=== PATIENT | male | born 1970 | race Caucasian/White ===

== ENCOUNTER 2017-01-17 19:25 | Emergency (ER) | payer BC | END 2017-01-17 22:25 | disposition left against medical advice (07) | LOC: MADERS 19:25 | DX: Z53.21 Procedure and treatment not carried out due to patient leaving prior to being seen by health care provider (principal) ==

== ENCOUNTER 2017-07-02 17:55 | Emergency (ER) | payer BC ==
[2017-07-02] MEDS ORDERED: HYDROcodone/Acetaminophen 10/325 mg Tablet ONE (19:34)
[2017-07-02] MEDS ORDERED: Naproxen 500 MG TAB ONE (19:34)
--- NOTE | 2017-07-02 21:01 | RAD ---
THREE VIEW RIGHT ANKLE: Clinical history: Twisting injury, pain. FINDINGS: There is no evidence of fracture or dislocation. Osteoarthritis is present. IMPRESSION: No acute fracture right ankle. POS: [facility]
== END 2017-07-02 20:15 | disposition home or self-care (01) ==
LOC: MADERS 17:55
DX: S93.401A Sprain of unspecified ligament of right ankle, initial encounter (principal); F17.210 Nicotine dependence, cigarettes, uncomplicated; X50.1XXA Overexertion from prolonged static or awkward postures, initial encounter

== ENCOUNTER 2017-10-28 18:11 | Emergency (ER) | payer BC ==
[2017-10-28] MEDS ORDERED: Ibuprofen 800 MG TAB ONE (20:07)
[2017-10-28] MEDS ORDERED: Amoxicillin/Potassium Clav 875 MG TAB ONE (20:07)
[2017-10-28] MEDS ORDERED: HYDROcodone/Acetaminophen 5/325 mg Tablet ONE (20:07)
--- NOTE | 2017-10-28 20:19 | RAD ---
PA AND LATEARL CHEST RADIOGRAPH: Date: 10-28-17 History: Chest pain. Comparison: None available. FINDINGS: The cardiac silhouette and pulmonary vasculature are within normal limits. There is minimal patchy de nsity overlying the right middle lobe and lingula only seen on the lateral projection. While this may be related to superimposition of structures, developing pneumonitis at the right middle lobe or ling ej cannot be excluded. The lungs are otherwise clear. Cardiac silhouette and pulmonary vasculature a re within normal limits. There is suggestion of remote rib fracture involving the anterolateral right 4th, 5th, and 6th ribs. There is mild wedging of a midthoracic vertebral body but this may be physio logic in origin and this finding was also noted on CT of the thorax on 02-14-16. IMPRESSION: Minimal patchy density overlying the right middle lobe and lingula on the lateral projection. While t his may be related to superimposition of structures, developing area of pneumonitis cannot be entirel y excluded. Follow up chest x-ray as clinically indicated is recommended. POS: [facility]
== END 2017-10-28 20:20 | disposition home or self-care (01) ==
LOC: MADERS 18:11
DX: S06.0X0A Concussion without loss of consciousness, initial encounter (principal); S22.41XA Multiple fractures of ribs, right side, initial encounter for closed fracture; F17.210 Nicotine dependence, cigarettes, uncomplicated; W52.XXXA Crushed, pushed or stepped on by crowd or human stampede, initial encounter; Y93.61 Activity, american tackle football; Y92.39 Other specified sports and athletic area as the place of occurrence of the external cause; Y99.8 Other external cause status
CPT/HCPCS: 71046

== ENCOUNTER 2017-12-04 21:01 | Emergency (ER) | payer BC ==
[2017-12-04] MEDS ORDERED: HYDROcodone/Acetaminophen 5/325 mg Tablet ONE (21:37)
[2017-12-04] MEDS ORDERED: Amoxicillin/Potassium Clav 875 MG TAB ONE (21:37)
== END 2017-12-04 21:44 | disposition home or self-care (01) ==
LOC: MADERS 21:01
DX: S61.452A Open bite of left hand, initial encounter (principal); F17.210 Nicotine dependence, cigarettes, uncomplicated; W54.0XXA Bitten by dog, initial encounter
CPT/HCPCS: 99283

== ENCOUNTER 2017-12-29 23:11 | Emergency (ER) | payer BC ==
[2017-12-30] MEDS ORDERED: HYDROcodone/Acetaminophen 10/325 mg Tablet ONE (00:09)
[2017-12-30] MEDS ORDERED: Ibuprofen 800 MG TAB ONE (00:09)
--- NOTE | 2017-12-30 07:41 | RAD ---
RIGHT KNEE 4 VIEWS: Date: 12/29/17 HISTORY: 47-year-old male with right knee pain. IMPRESSION: Mild degenerative changes. No acute fracture or dislocation. Possible minimal suprapatellar recess fl uid. POS: [facility]
== END 2017-12-30 00:30 | disposition home or self-care (01) ==
LOC: MADERS 23:11
DX: M25.561 Pain in right knee (principal); F17.220 Nicotine dependence, chewing tobacco, uncomplicated

== ENCOUNTER 2018-10-16 07:50 | Emergency (ER) | payer BC ==
[2018-10-16] MEDS ORDERED: Azithromycin 250 MG TAB ONE (08:50)
[2018-10-16] MEDS ORDERED: Dexamethasone 4 MG TAB ONE (08:50)
[2018-10-16] MEDS ORDERED: Benzonatate 100 MG CAP ONE (08:50)
== END 2018-10-16 08:59 | disposition home or self-care (01) ==
LOC: MADERS 07:50
DX: J18.9 Pneumonia, unspecified organism (principal); F17.210 Nicotine dependence, cigarettes, uncomplicated
CPT/HCPCS: 87804; 99283; J8540

== ENCOUNTER 2018-11-03 18:10 | Emergency (ER) | payer BC | END 2018-11-03 19:28 | disposition home or self-care (01) | LOC: MADERS 18:10 | DX: S06.0X9A Concussion with loss of consciousness of unspecified duration, initial encounter (principal); F17.210 Nicotine dependence, cigarettes, uncomplicated; W22.8XXA Striking against or struck by other objects, initial encounter | CPT/HCPCS: 99283 ==

== ENCOUNTER 2019-02-02 23:01 | Emergency (ER) | payer BC ==
--- NOTE | 2019-02-03 00:22 | RAD ---
Radiograph right knee 4 views: HISTORY: Pain FINDINGS: Suprapatellar joint effusion. Tiny osteophytes at patellofemoral, medial, and lateral compartments wi thout joint space narrowing. No fracture or dislocation. Edema in Hoffa's fat pad. IMPRESSION: 1. Joint effusion and edema in Hoffa's fat pad. 2. Mild osteoarthrosis. 3. No fracture.
== END 2019-02-03 | disposition home or self-care (01) ==
LOC: MADERS 23:01
DX: S83.91XA Sprain of unspecified site of right knee, initial encounter (principal); X50.1XXA Overexertion from prolonged static or awkward postures, initial encounter

== ENCOUNTER 2019-11-04 06:35 | Emergency (ER) | payer BC | END 2019-11-04 07:50 | disposition home or self-care (01) | LOC: MADERS 06:35 | DX: B34.9 Viral infection, unspecified (principal); R00.1 Bradycardia, unspecified; F17.220 Nicotine dependence, chewing tobacco, uncomplicated; Z71.6 Tobacco abuse counseling; Z79.899 Other long term (current) drug therapy | CPT/HCPCS: 87804; 93005; 99406 ==

== ENCOUNTER 2020-07-09 17:53 | Emergency (ER) | payer BC ==
[2020-07-09] MEDS ORDERED: Sodium Chloride 0.9% 100 ML ONE (19:25)
[2020-07-09] MEDS ORDERED: Ondansetron PF 4 MG/2 ML Vial ONE (19:25)
[2020-07-09 19:32] LABS: #Basophils 0.1 thou/uL (0.0-0.2); #Eosinphils 0.3 thou/uL (0.0-0.7); #Lymphocytes 2.2 thou/uL (1.20-3.40); #Monocytes 0.8 thou/uL (0.11-0.59); #Neutrophils 5.5 thou/uL (1.40-6.50); %Basophils 1.5 % (0.0-1.0); %Eosinophils 3.9 % (0.0-10.0); %Lymphocytes 24.9 % (21.0-51.0); %Monocytes 8.5 % (0.0-10.0); %Neutrophils 61.2 % (42.0-75.0); Hemoglobin 15.7 g/dL (14.0-18.0); Mean Corpuscular HGB CONC 31.9 g/dL (32.0-36.0); Mean Corpuscular Hemoglobin 28.9 pg (27.0-31.0); Mean Corpuscular Volume 90.6 fL (78.0-98.0); Mean Platelet Volume 6.2 fL (7.4-10.4); Platelet Count 164 thou/uL (130-400); RBC Distribution Width 11.6 % (11.5-14.5); Red Blood Cell (RBC) Count 5.43 mill/uL (4.70-6.10)
[2020-07-09 19:43] LABS: Anion Gap 17 mmol/L (10-20); BUN (Urea Nitrogen) 19 mg/dL (8.4-25.7); Calc. Creatinine Clearance 0 mL/min (70-130); Calcium 9.2 mg/dL (7.8-10.44); Carbon Dioxide 19 mmol/L (22-29); Chloride 108 mmol/L (98-107); Estimated GFR-MDRD 71; Glucose 83 mg/dL (70-105); Potassium 3.6 mmol/L (3.5-5.1); Sodium 140 mmol/L (136-145)
[2020-07-11 10:24] LABS: SARS-CoV-2 MS2 Positive; SARS-CoV-2 N Gene Negative; SARS-CoV-2 S Gene Negative; SARS-CoV-2 by NAA Not Detected (NotDetected); SARS-CoV-2 orf1ab Negative
== END 2020-07-09 20:35 | disposition home or self-care (01) ==
LOC: MADERS 17:53
DX: R19.7 Diarrhea, unspecified (principal); R53.81 Other malaise; R11.0 Nausea; Z20.828 Contact with and (suspected) exposure to other viral communicable diseases; F17.220 Nicotine dependence, chewing tobacco, uncomplicated
CPT/HCPCS: 80048; 85025; 87081; 87430; 87635; 96374; J2405; J3490; U0003

== ENCOUNTER 2021-03-07 04:03 | Emergency (ER) | payer BC, OTHER ==
[2021-03-07] MEDS ORDERED: Acetaminophen/Codeine 30-300mg Tablet ONE (04:35)
== END 2021-03-07 04:58 | disposition home or self-care (01) ==
LOC: MADERS 04:03
DX: S52.572A Other intraarticular fracture of lower end of left radius, initial encounter for closed fracture (principal); S52.612A Displaced fracture of left ulna styloid process, initial encounter for closed fracture; F17.220 Nicotine dependence, chewing tobacco, uncomplicated; W22.8XXA Striking against or struck by other objects, initial encounter
CPT/HCPCS: 29125

== ENCOUNTER 2022-10-24 04:58 | Emergency (ER) | payer BC, SELFPAY ==
[2022-10-24] MEDS ORDERED: Aspirin Chewable 81 MG TAB ONE (05:18)
[2022-10-24] MEDS ORDERED: Sodium Chloride 0.9% 1,000 ML ONE (05:18)
[2022-10-24] MEDS ORDERED: Mag-Al Plus 1200 MG/1200 MG/120 MG/30 ML UDCUP ONE (05:19)
[2022-10-24] MEDS ORDERED: Lidocaine Viscous Sol 2% 15 ml UD Cup ONE (05:19)
[2022-10-24 05:22] LABS: #Basophils 0.1 thou/uL (0.0-0.2); #Eosinphils 0.3 thou/uL (0.0-0.7); #Lymphocytes 1.8 thou/uL (1.20-3.40); #Monocytes 0.6 thou/uL (0.11-0.59); #Neutrophils 4.3 thou/uL (1.40-6.50); %Basophils 1.1 % (0.0-1.0); %Eosinophils 4.8 % (0.0-10.0); %Lymphocytes 25.2 % (21.0-51.0); %Monocytes 7.9 % (0.0-10.0); %Neutrophils 60.9 % (42.0-75.0); Hemoglobin 16.3 g/dL (14.0-18.0); Mean Corpuscular HGB CONC 33.7 g/dL (32.0-36.0); Mean Corpuscular Hemoglobin 29.2 pg (27.0-31.0); Mean Corpuscular Volume 86.7 fl (78.0-98.0); Mean Platelet Volume 6.1 fL (7.4-10.4); Platelet Count 205 10x3/uL (130-400); RBC Distribution Width 11.2 % (11.5-14.5); Red Blood Cell (RBC) Count 5.56 mill/uL (4.70-6.10); White Blood Cell (WBC) Count 7.1 10x3/uL (4.8-10.8)
[2022-10-24 05:32] LABS: INR-International Normal Ratio 0.9; Prothrombin Time 12.7 sec (12.0-14.7)
[2022-10-24 05:33] LABS: PTT 33.1 sec (22.9-36.1)
[2022-10-24 05:35] LABS: D-Dimer Test 0.45 *mcg/mL (0.27-0.43)
[2022-10-24 05:46] LABS: Bilirubin Negative (Negative); Blood, Urine Negative (Negative); Clarity Clear (Clear); Glucose, Urine (Dipstick) Negative (Negative); Ketone, Urine Negative (Negative); Leukocyte Negative (Negative); Nitrite Negative (Negative); Protein, Urine (Dipstick) Negative (Neg-Trace); Urobilinogen 0.2 mg/dL (Less than 2); pH, Urine 5.5 (5.0-9.0)
[2022-10-24 05:47] LABS: ALT (SGPT) 34 U/L (8-55); AST (SGOT) 26 U/L (5-34); Albumin 4.5 g/dL (3.5-5.0); Alkaline Phosphatase 64 U/L (40-110); Anion Gap 13 mmol/L (10-20); BUN (Urea Nitrogen) 18 mg/dL (8.4-25.7); Bilirubin, Total 0.4 mg/dL (0.2-1.2); Calc. Creatinine Clearance 0 mL/min (70-130); Calcium 9.3 mg/dL (7.8-10.44); Carbon Dioxide 24 mmol/L (22-29); Chloride 107 mmol/L (98-107); Estimated GFR 81; Globulin 2.3 g/dL (2.4-3.5); Glucose 103 mg/dL (70-105); Lipase 12 U/L (8-78); Potassium 4.7 mmol/L (3.5-5.1); Protein, Total 6.8 g/dL (6.0-8.3); Sodium 139 mmol/L (136-145)
[2022-10-24] MEDS ORDERED: Nitroglycerin 0.4 MG TAB 1 EACH ONE ×3 (06:39→08:11)
[2022-10-24] MEDS ORDERED: Sodium Chloride 0.9% 100 ML BAG ONE (06:53)
[2022-10-24] MEDS ORDERED: Atropine Sulfate 1 mg/10 ml Syringe ONE (08:11)
[2022-10-24] MEDS ORDERED: Iopamidol 370 76% 100 ML VIAL ONE (08:25)
[2022-10-24] MEDS ORDERED: HYDROcodone/Acetaminophen 5/325 mg Tablet ONE (08:26)
== END 2022-10-24 09:14 | disposition short-term general hospital (02) ==
LOC: MADERS 04:58
DX: R07.9 Chest pain, unspecified (principal); R10.10 Upper abdominal pain, unspecified; R00.1 Bradycardia, unspecified; F17.210 Nicotine dependence, cigarettes, uncomplicated
CPT/HCPCS: 71045; 71275; 74176; 80053; 81003; 83690; 83880; 84443; 84484; 85025; 85379; 85610; 85730; 93005; 96374; J0461; J7050; Q9967

== ENCOUNTER 2024-09-10 15:54 | Emergency (ER) | payer BC | END 2024-09-10 16:49 | disposition home or self-care (01) | LOC: MADERS 15:54 | DX: S09.90XA Unspecified injury of head, initial encounter (principal); H61.23 Impacted cerumen, bilateral; F17.210 Nicotine dependence, cigarettes, uncomplicated; F17.220 Nicotine dependence, chewing tobacco, uncomplicated; I25.2 Old myocardial infarction; W22.8XXA Striking against or struck by other objects, initial encounter | CPT/HCPCS: 99283 ==

== ENCOUNTER 2025-04-14 14:02 | Emergency (ER) | payer BC ==
[2025-04-14 15:08] LABS: %Lymphocytes 10.0 % (21.0-51.0); %Neutrophils 83.6 % (42.0-75.0); Hematocrit 48.1 % (42.0-52.0); Hemoglobin 15.7 g/dL (14.0-18.0); Mean Corpuscular Hemoglobin 29.6 pg (27.0-31.0); Mean Corpuscular Volume 90.9 fl (78.0-98.0); Platelet Count 153 10x3/uL (130-400); Red Blood Cell (RBC) Count 5.29 mill/uL (4.70-6.10); White Blood Cell (WBC) Count 8.9 10x3/uL (4.8-10.8)
[2025-04-14 15:09] LABS: #Basophils 0.1 thou/uL (0.0-0.2); #Eosinophils 0.1 thou/uL (0.0-0.7); #Lymphocytes 0.9 thou/uL (1.20-3.40); #Monocytes 0.4 thou/uL (0.11-0.59); #Neutrophils 7.4 thou/uL (1.40-6.50); %Basophils 1.1 % (0.0-1.0); %Eosinophils 1.4 % (0.0-10.0); %Monocytes 4.0 % (0.0-10.0)
[2025-04-14 15:23] LABS: ALT (SGPT) 24 U/L (Less than 45); AST (SGOT) 25 U/L (11-34); Albumin 4.2 g/dL (3.1-4.5); Alkaline Phosphatase 53 U/L (40-110); Anion Gap 15 mmol/L (10-20); BUN (Urea Nitrogen) 15 mg/dL (8.4-25.7); Bilirubin, Total 0.8 mg/dL (0.3-1.2); Calc. Creatinine Clearance 0 mL/min (70-130); Calcium 8.7 mg/dL (7.8-10.44); Carbon Dioxide 19 mmol/L (22-29); Chloride 108 mmol/L (98-107); Globulin 2.5 g/dL (2.4-3.5); Glucose 86 mg/dL (70-105); Potassium 4.1 mmol/L (3.5-5.1); Sodium 138 mmol/L (136-145); Troponin I Less than 0.010 ng/mL (< 0.028)
[2025-04-14] MEDS ORDERED: Acetaminophen 500 MG TAB ONE (15:52)
== END 2025-04-14 16:06 | disposition home or self-care (01) ==
LOC: MADERS 14:02
DX: R07.89 Other chest pain (principal); J06.9 Acute upper respiratory infection, unspecified; I25.2 Old myocardial infarction; I10 Essential (primary) hypertension; E78.5 Hyperlipidemia, unspecified; F17.210 Nicotine dependence, cigarettes, uncomplicated
CPT/HCPCS: 36415; 71046; 80053; 84484; 85025; 93005

== ENCOUNTER 2025-08-04 15:37 | Outpatient (CLI) | payer BC ==
[2025-08-04 16:20] LABS: ALT (SGPT) 23 U/L (Less than 45); AST (SGOT) 24 U/L (11-34); Albumin 4.1 g/dL (3.1-4.5); Alkaline Phosphatase 57 U/L (40-110); Anion Gap 15 mmol/L (10-20); BUN (Urea Nitrogen) 20 mg/dL (8.4-25.7); Bilirubin, Total 0.5 mg/dL (0.3-1.2); Calc. Creatinine Clearance 0 mL/min (70-130); Calcium 9.1 mg/dL (7.8-10.44); Carbon Dioxide 23 mmol/L (22-29); Cardiac Risk 4.2 (Less than 4.5); Chloride 109 mmol/L (98-107); Cholesterol 138 mg/dl (< 200 Desired); Globulin 2.6 g/dL (2.4-3.5); Glucose 88 mg/dL (70-105); HDL Cholesterol 33 mg/dL (>60 Neg Risk); LDL Cholesterol, Calculated 81 mg/dL; Potassium 3.8 mmol/L (3.5-5.1); Sodium 143 mmol/L (136-145); Triglycerides 119 mg/dL (Less than 150)
== END 2025-08-04 15:38 | disposition home or self-care (01) ==
LOC: MADLAB 15:37
PROVIDERS: ATTEND Nurse Practitioner Family
DX: I25.10 Atherosclerotic heart disease of native coronary artery without angina pectoris (principal)
CPT/HCPCS: 36415; 80053; 80061